=== PATIENT | female | born 1970 | race American Indian/Alaskan Native ===

== ENCOUNTER 2017-02-27 18:11 | Emergency (ER) | payer BC ==
[2017-02-27 20:28] LABS: Basophils % (Auto) 0.8 % (0.0-1.8); Eosinophils % (Auto) 2.4 % (0.0-4.3); Hematocrit 26.4 % (30.3-42.9); Mean Corpuscular HGB Conc 30 % (30-34); Platelet Count 346 K/mm3 (140-440); Red Blood Count 3.95 M/mm3 (3.65-5.03); White Blood Count 6.6 K/mm3 (4.5-11.0)
[2017-02-27 20:38] LABS: Anion Gap 15 mmol/L; BUN/Creatinine Ratio 6.25; Blood Urea Nitrogen 5 mg/dL (7-17); Calcium 8.4 mg/dL (8.4-10.2); Carbon Dioxide 24 mmol/L (22-30); Chloride 102.1 mmol/L (98-107); Glucose 91 mg/dL (65-100); Potassium 3.5 mmol/L (3.6-5.0); Sodium 138 mmol/L (137-145)
[2017-02-27 20:43] LABS: Mean Corpuscular Hemoglobin 20 pg (28-32); Mean Corpuscular Volume 67 fl (79-97); Red Cell Distribution Width 22.2 % (13.2-15.2)
[2017-02-28] MEDS ORDERED: PROVENTIL IH ONE (02:41)
[2017-02-28] MEDS ORDERED: DELTASONE PO ONE (02:41)
--- NOTE | 2017-02-28 02:45 | Emergency Department Report ---
ED Chest Pain HPI - General Chief Complaint: Chest Pain Stated Complaint: CHEST PAIN,SOB Time Seen by Provider: 02/28/17 02:41 Source: patient Mode of arrival: Ambulatory Limitations: No Limitations - History of Present Illness Initial Comments: Patient is a 47-year-old female with a history of well-controlled asthma who presents with cough, shortness of breath, and chest tightness. Patient reports her symptoms started 3 days ago with cough and congestion and now she is reporting chest tightness which is exacerbated with deep breath and coughing. Patient has tried [id number] Robitussin with no relief. Patient reports her daughter has a upper history infection as well. Otherwise no fevers, chills , nausea, vomiting, abdominal pain, trauma, or travel MD Complaint: chest pain, other (cough, URI symptoms) -: days(s) Time: 03:00 Onset: during exertion Pain Location: substernal Pain Radiation: none Severity: mild Quality: tightness Consistency: constant Improves With: nothing Worsens With: inspiration, other (cough) Context: recent illness re: dyspnea Other Symptoms: cough Treatments Prior to Arrival: none - Related Data Previous Rx's Medication Instructions Recorded Last Taken Type Ferrous Sulfate [Feosol 325 MG tab] 325 mg PO QDAY #30 tablet 07/24/15 Unknown Rx ALBUTEROL Inhaler [ProAir HFA 1 puff IH QID PRN #1 inha 02/28/17 Unknown Rx Inhaler] ALBUTEROL NEB's [Proventil 0.083% 2.5 mg IH Q4HR PRN #30 ml 02/28/17 Unknown Rx NEBS] Azithromycin [Zithromax Z-STANLEY] 250 mg PO DAILY #1 tablet 02/28/17 Unknown Rx predniSONE [Deltasone] 50 mg PO QDAY #5 tab 02/28/17 Unknown Rx Allergies Allergy/AdvReac Type Severity Reaction Status Date / Time codeine Allergy Rash Verified 02/27/17 18:31 phenobarbital Allergy Unknown Verified 07/23/15 10:58 phenytoin sodium Allergy Unknown Verified 07/23/15 10:58 [From Dilantin] phenytoin sodium extended Allergy Unknown Verified 07/23/15 10:58 [From Dilantin] AHMET score - Ahmet Score Age > 65: (0) No Aspirin use within the Past 7 Days: (0) No 3 or more CAD Risk Factors: (0) No 2 or more Angina events in past 24 hrs: (0) No Known CAD with more than 50% Stenosis: (0) No Elevated Cardiac Markers: (0) No ST Deviation Greater than 0.5mm: (0) No AHMET Score: 0 ED Review of Systems ROS: Stated complaint: CHEST PAIN,SOB Other details as noted in HPI Comment: All other systems reviewed and negative ED Past Medical Hx - Past Medical History Previous Medical History?: Yes Hx Sickle Cell Disease: Yes Hx Asthma: Yes Additional medical history: Anemia, Fibroid tumors - Surgical History Past Surgical History?: Yes Additional Surgical History: Fibroid removed. - Social History Smoking Status: Never Smoker Substance Use Type: None - Medications Home Medications: Home Medications Medication Instructions Recorded Confirmed Last Taken Type Ferrous Sulfate [Feosol 325 MG tab] 325 mg PO QDAY #30 tablet 07/24/15 Unknown Rx ALBUTEROL Inhaler [ProAir HFA 1 puff IH QID PRN #1 inha 02/28/17 Unknown Rx Inhaler] ALBUTEROL NEB's [Proventil 0.083% 2.5 mg IH Q4HR PRN #30 ml 02/28/17 Unknown Rx NEBS] Azithromycin [Zithromax Z-STANLEY] 250 mg PO DAILY #1 tablet 02/28/17 Unknown Rx predniSONE [Deltasone] 50 mg PO QDAY #5 tab 02/28/17 Unknown Rx ED Physical Exam - General Limitations: No Limitations General appearance: alert, in no apparent distress - Head Head exam: Present: atraumatic, normocephalic - Eye Eye exam: Present: normal appearance - ENT ENT exam: Present: mucous membranes moist - Neck Neck exam: Present: normal inspection - Respiratory Respiratory exam: Present: wheezes, chest wall tenderness. Absent: respiratory distress - Cardiovascular Cardiovascular Exam: Present: regular rate, normal rhythm. Absent: systolic murmur, diastolic murmur, rubs, gallop - GI/Abdominal GI/Abdominal exam: Present: soft, normal bowel sounds - Extremities Exam Extremities exam: Present: normal inspection - Back Exam Back exam: Present: normal inspection - Neurological Exam Neurological exam: Present: alert, oriented X3 - Psychiatric Psychiatric exam: Present: normal affect, normal mood - Skin Skin exam: Present: warm, dry, intact, normal color. Absent: rash ED Course Vital Signs 0402/28/17 02/28/17 18:31 02:50 03:13 Temperature 101.2 F H 101.9 F H Pulse Rate 111 H 89 Pulse Rate [ Anterior Bilateral] Respiratory 22 18 18 Rate Respiratory Rate [Anterior Bilateral] Blood Pressure 144/84 Blood Pressure 135/78 [Right] O2 Sat by Pulse 100 94 Oximetry 02/28/17 03:56 Temperature Pulse Rate Pulse Rate [ 102 H Anterior Bilateral] Respiratory Rate Respiratory 18 Rate [Anterior Bilateral] Blood Pressure Blood Pressure [Right] O2 Sat by Pulse Oximetry ED Medical Decision Making - Lab Data Result diagrams: 02/27/17 20:11 02/27/17 20:11 - EKG Data -: EKG Interpreted by Me EKG shows normal: sinus rhythm, axis (normal axis), intervals (QTC 407 ms), QRS complexes, ST-T waves (no ST/T changes and no STEMI) Rate: tachycardia (104 bpm) - Medical Decision Making Labs discussed with patient. hgb of 8. Pt is aware of her anemia and reports she gets heavy bleeding from fibroids and is supposed to be on iron supplementation but has not been taking it. Instructed patient to follow up with her PMD for her anemia and instructed her to resume her iron supplementation. repeat temp prior to discharge: 100.3, patient feels improvement Critical care attestation.: If time is entered above; I have spent that time in minutes in the direct care of this critically ill patient, excluding procedure time. ED Disposition Clinical Impression: URI (upper respiratory infection), Asthma, Anemia Disposition: DISCHARGED TO HOME OR SELFCARE Is pt being admited?: No Condition: Stable Instructions: Asthma (ED), Upper Respiratory Infection (ED), Anemia (ED) Prescriptions: ALBUTEROL Inhaler [ProAir HFA Inhaler] 1 puff IH QID PRN #1 inha PRN Reason: Wheezing ALBUTEROL NEB's [Proventil 0.083% NEBS] 2.5 mg IH Q4HR PRN #30 ml PRN Reason: Shortness Of Breath Azithromycin [Zithromax Z-STANLEY] 250 mg PO DAILY #1 tablet predniSONE [Deltasone] 50 mg PO QDAY #5 tab Referrals: PRIMARY CARE, [Primary Care Provider] - 3-5 Days
[2017-02-28] MEDS ORDERED: TYLENOL ONE (03:03)
[2017-02-28] MEDS ORDERED: TYLENOL PO ONE ×2 (03:11→04:07)
[2017-02-28 04:05] LABS: Anion Gap 19 mmol/L; BUN/Creatinine Ratio 8.33; Blood Urea Nitrogen 5 mg/dL (7-17); Calcium 8.2 mg/dL (8.4-10.2); Carbon Dioxide 20 mmol/L (22-30); Chloride 101.4 mmol/L (98-107); Glucose 93 mg/dL (65-100); Potassium 3.7 mmol/L (3.6-5.0); Sodium 137 mmol/L (137-145)
[2017-02-28 04:42] VITALS: BP 132/78
--- NOTE | 2017-02-28 09:01 | XRay Report ---
ROUTINE CHEST, TWO VIEWS: Cough, shortness of breath. PA and lateral views demonstrate the heart and mediastinal contour to be of normal size and shape. The lungs are clear and fully expanded and the soft tissues and bony structures are normal. IMPRESSION: Normal study.
== END 2017-02-28 04:40 | disposition home or self-care (01) ==
LOC: ED 18:11
DX: J45.909 Unspecified asthma, uncomplicated (principal); D64.9 Anemia, unspecified; J06.9 Acute upper respiratory infection, unspecified; D57.80 Other sickle-cell disorders without crisis; D21.9 Benign neoplasm of connective and other soft tissue, unspecified; Z88.5 Allergy status to narcotic agent; Z88.8 Allergy status to other drugs, medicaments and biological substances
CPT/HCPCS: 36415; 71020; 80048; 84484; 85025; 85379; 93005; 93010; 94640; 99285; G0480; J7512; 80320

== ENCOUNTER 2019-03-19 13:49 | Outpatient (CLI) | payer BC ==
--- NOTE | 2019-03-20 08:40 | Mammography Report ---
BILATERAL DIGITAL SCREENING MAMMOGRAM with CAD: 03/19/19 13:49:00 CLINICAL: Routine screening. COMPARISON: None available. This FINDINGS: There are bilateral scattered areas of fibroglandular density.No mass, architectural distortion or suspicious calcifications. IMPRESSION: No mammographic evidence of malignancy. BI-RADS CATEGORY: 1 -- Negative RECOMMENDATION: Routine mammographic screening in one year. COMMENT: Patient follow-up letters are generated by our [employer] application.
== END 2019-03-19 13:50 | disposition home or self-care (01) ==
LOC: SPVWC 13:49
PROVIDERS: ATTEND Obstetrics & Gynecology
DX: Z12.31 Encounter for screening mammogram for malignant neoplasm of breast (principal); J45.909 Unspecified asthma, uncomplicated
CPT/HCPCS: 77067